=== PATIENT | female | born 1980 | race Hispanic/Latino ===

== ENCOUNTER 2019-07-31 07:02 | Day surgery (SDC) | payer BC ==
[2019-07-30 14:54] VITALS: BP 129/82
[2019-07-30 15:17] LABS: BASOPHILS % (AUTO) 0.6 % (0.0-5.0); EOSINOPHILS % (AUTO) 2.3 % (0.0-8.0); HEMATOCRIT 38.9 % (36-48); LYMPHOCYTES % (AUTO) 33.5 % (21.0-51.0); MEAN CORPUSCULAR HEMOGLOBIN 28.3 pg (27.0-33.0); MEAN CORPUSCULAR HGB CONC 33.4 g/dL (32.0-36.0); MEAN CORPUSCULAR VOLUME 84.7 fL (79-99); MONOCYTES % (AUTO) 5.6 % (3.0-13.0); NEUTROPHILS % (AUTO) 57.6 % (40.0-77.0); PLATELET COUNT (AUTO) 306 K/uL (130-400); RED BLOOD CELL COUNT(AUTO) 4.59 MIL/uL (4.00-5.50); RED CELL DISTRIBUTION WIDTH 12.8 % (11.0-15.5)
[2019-07-31] VITALS (13 sets, daily range): BP systolic 109–124; BP diastolic 61–81
[~2019-07-31] VITALS: Ht 165.1 cm; Wt 97.1 kg
[2019-07-31] MEDS: CEFAZOLIN SODIUM 1 GM VIAL IVP SCH ×2 (06:00→08:20)
[2019-07-31] MEDS: CALDOLOR 800MG+NS 250ML 250 ML IV SCH ×2 (06:00→08:30)
[~2019-07-31 07:02] MED LIST: LACTATED RINGERS 1000ML 1,000 ML IV SCH
[2019-07-31] MEDS ORDERED: ONDANSETRON HCL 4 MG/2 ML VIAL ONE (07:55)
[2019-07-31] MEDS ORDERED: DEXAMETHASONE SOD PHOSPHATE 10MG/ML 1ML VIAL ONE (07:55)
[2019-07-31] MEDS ORDERED: LIDOCAINE PF 2% 5ML ABBOJECT ONE (07:55)
[2019-07-31] MEDS ORDERED: FENTANYL CITRATE PF 50 MCG/1 ML 2ML VIAL ONE (07:56)
[2019-07-31] MEDS ORDERED: PROPOFOL 10 MG/ML 20ML VIAL IV ONE (07:56)
[2019-07-31] MEDS ORDERED: MIDAZOLAM HCL 1 MG/ML 5ML VIAL ONE (07:58)
--- NOTE | 2019-07-31 09:40 | NUR ---
ASSESSMENT RECEIVED PT FROM PACU STAFF SHANDRA JENSEN. PT AAOX3. JUANITO PAD IN PLACE. DRY AND INTACT. NO BLEEDING, OOZING NOTED. DENIES ANY PAIN. AT BEDSIDE.
--- NOTE | 2019-07-31 10:15 | NUR ---
DISCHARGE ORAL AND WRITTEN DISCHARGE INSTRUCTIONS GIVEN TO PT AND PTS . PT STATES DR. MAJOR GAVE PRESCRIPTION PRIOR TO PROCEDURE. NO OTHER QUESTIONS AT THIS TIME.
== END 2019-07-31 10:20 | disposition home or self-care (01) ==
LOC: DAH 07:02
PROVIDERS: ATTEND Obstetrics & Gynecology
DX: N92.1 Excessive and frequent menstruation with irregular cycle (principal); N85.8 Other specified noninflammatory disorders of uterus; Z98.51 Tubal ligation status; Z98.890 Other specified postprocedural states; Z72.89 Other problems related to lifestyle
CPT/HCPCS: 36415; 58558; 85025; 86850; 86900; 86901; A4215; A4221; A4222; A4223; A4351; A4355; A4606; A4663; A6260; J0690; J1100; J1741; J2001; J2250; J2405; J2704; J3010; J7030 ×2; J7120